=== PATIENT | female | born 1980 | race Caucasian/White ===

== ENCOUNTER 2018-01-09 20:25 | Emergency (ER) | payer OTHER ==
[~2018-01-09] VITALS: Ht 170.2 cm; Wt 72.8 kg
[~2018-01-09 20:25] MED LIST: PERC5TAB12 PO; WELL150T PO; ZOFR4TAB3 SL
[2018-01-09 20:29] VITALS: BP 122/75; PULSE 77; RESP 16; TEMP 97.8; O2SAT 100
[2018-01-09] MEDS ORDERED: BUPR150XL PO (20:45)
--- NOTE | 2018-01-09 21:31 | PD ---
HPI . toe injury Chief Complaint: Injury Time Seen by Provider: 21:28 Travel History International Travel<30 days: No Contact w/Intl Traveler<30days: No Traveled to known affect area: No History of Present Illness HPI 37-year-old female presents to the emergency department for evaluation of injury to the left second toe. Patient states she jammed it into a wall. Patient states injury occurred approximate 30 minutes prior to arrival to the emergency department. Patient repaying 6/10 intensity. Patient voices no other concerns or complaints. PFSH Past Medical History Narrative Medical Depression; tubal ligation; nursing notes reviewed Depression: Yes Cancer: No Diabetes: No Diminished Hearing: No Endocrine: No Hepatitis: No Immune Disorder: No Psychiatric: No Thyroid Disease: No Influenza Vaccination: Yes ?: Not : 1 Para: 1 Tubal Ligation: Yes Past Surgical History AICD: No Genitourinary Surgery: Yes (tubal ligation) Hysterectomy: Yes Joint Replacement: No Pacemaker: No Social History Alcohol Use: Yes (occ) Tobacco Use: No Substance Use: No Allergies-Medications (Allergen,Severity, Reaction): Coded Allergies: No Known Allergies (Verified Adverse Reaction, Unknown, 01/09/18) Reported Meds & Prescriptions Reported Meds & Active Scripts Active Tramadol (Tramadol HCl) 50 Mg Tab 50 Mg PO Q6H PRN Reported Wellbutrin Xl 24 HR (Bupropion HCl) 150 Mg Tab 150 Mg PO DAILY Review of Systems Except as stated in HPI: all other systems reviewed are Neg Physical Exam Narrative GENERAL: Well-developed well-nourished female no acute distress no respiratory distress SKIN: Warm and dry. MUSCULOSKELETAL: No cyanosis, or edema. Attention left foot focus to left second toe obvious deformity with brisk capillary refill less than 2 seconds decreased range of motion secondary to pain otherwise neurovascular tendon intact. Data Data Last Documented VS Vital Signs Date Time Temp Pulse Resp B/P (MAP) Pulse Ox O2 Delivery O2 Flow Rate FiO2 01/09/18 20:29 97.8 77 16 122/75 (91) 100 Orders Orders Toe (Min 2vws) (01/09/18 ) Ed Discharge Order (01/09/18 22:40) Splint Or Brace Apply/Monitor (01/09/18 22:40) Shoe Post Op (01/09/18 ) Shoe Cast (01/09/18 ) MDM Medical Decision Making Medical Screen Exam Complete: Yes Emergency Medical Condition: Yes Medical Record Reviewed: Yes Interpretation(s) Last Impressions Toe X-Ray 01/09/18 0000 Signed Impressions: CONCLUSION: Mildly displaced fracture proximal phalanx left second toe. Differential Diagnosis Contusion subluxation dislocation fracture Narrative Course Imaging of the left second toe ordered Imaging consistent with no fracture proximal phalanx appears to be slightly displaced and involves the second MTP joint this information is shared with the patient and her spouse at bedside Yissel taping and postop shoe applied patient's case discussed with podiatry will see her next week for placement of a pin Physician Communication Physician Communication Case discussed with on-call sfdc developer Dr Owen -- has reviewed imaging study Diagnosis Primary Impression: Toe fracture, left Qualified Codes: S92.512A - Displaced fracture of proximal phalanx of left lesser toe(s), initial encounter for closed fracture Referrals: Chantelle Bronson DPM 3 days call office Friday for appointment for next week Patient Instructions: General Instructions Additional Instructions: Use yissel tape to splint toes May apply ice intermittently for first 12-24 hours to decrease associated soft tissue swelling Elevate foot Wear open toed shoes with support/cast shoe Follow-up with sfdc developer call office on Friday to schedule follow-up appointment Take ibuprofen 800 mg as often as every 8 hours as needed for pain associated with inflammation May take pain medication as prescribed as needed; may cause side effects that cause/include drowsiness delayed reaction time increased risk for fall or cause constipation Med/Other Pt SpecificInfo: Prescription(s) given Scripts Tramadol (Tramadol) 50 Mg Tab 50 MG PO Q6H Y for PAIN, #5 TAB 0 Refills Prov: Kassidy Roach MD 01/09/18 Disposition: 01 DISCHARGE HOME Condition: Stable Kassidy Roach MD January 09, 2018 21:31
--- NOTE | 2018-01-09 22:07 | RADRPT ---
EXAM DATE: 01/09/2018 10:01 PM EDT AGE/SEX: 37 years / Female INDICATIONS: Left 2nd digit pain after patient fell down step today CLINICAL DATA: This is the patient's initial encounter. Patient reports that signs and symptoms have been present for 1 day and indicates a pain score of 8/10. MEDICAL/SURGICAL HISTORY: None. None. COMPARISON: No prior [facility] exams available for comparison. FINDINGS: There is a mildly displaced fracture proximal phalanx of the second toe. No dislocation. No other fra ctures identified. CONCLUSION: Mildly displaced fracture proximal phalanx left second toe. Electronically signed by: Néstor Myers MD 01/09/2018 10:06 PM EDT
[2018-01-09] MEDS ORDERED: TRAM50TA PO (22:43)
== END 2018-01-09 22:45 | disposition home or self-care (01) ==
LOC: PHEFT 20:25
DX: S92.512A Displaced fracture of proximal phalanx of left lesser toe(s), initial encounter for closed fracture (principal); W22.01XA Walked into wall, initial encounter; F32.9 Major depressive disorder, single episode, unspecified
CPT/HCPCS: 73660; 99283; L3260